=== PATIENT | female | born 1980 | race Caucasian/White ===

== ENCOUNTER → 2019-03-05 | Outpatient (CLI) | payer BC ==
--- NOTE | 2019-03-06 09:35 | MM ---
Reason for exam: screening (asymptomatic). Baseline mammogram. History: Patient is nulliparous. Family history of breast cancer in mother at age 62. Physical Findings: Nurse did not find any significant physical abnormalities on exam. MG 3D Screening Mammo W/Cad Bilateral CC and MLO view(s) were taken. There are scattered fibroglandular densities. There is no discrete abnormality. These results were verbally communicated with the patient and result sheet given to the patient on 03/05/19. ASSESSMENT: Negative, BI-RAD 1 RECOMMENDATION: Routine screening mammogram of both breasts in 1 year.
== END | disposition home or self-care (01) ==
LOC: RADMAMWWP 15:19
PROVIDERS: ATTEND Family Medicine
DX: Z12.31 Encounter for screening mammogram for malignant neoplasm of breast (principal)
CPT/HCPCS: 77063; 77067

== ENCOUNTER → 2020-04-14 | Outpatient (CLI) | payer BC ==
--- NOTE | 2020-04-16 08:20 | MM ---
Reason for exam: screening (asymptomatic). Last mammogram was performed 1 year and 1 month ago. History: Patient is nulliparous. Family history of breast cancer in mother at age 62. Physical Findings: A clinical breast exam by your physician is recommended on an annual basis and results should be correlated with mammographic findings. MG 3D Screening Mammo W/Cad Bilateral CC and MLO view(s) were taken. Prior study comparison: March 05, 2019, bilateral MG 3d screening mammo w/cad. There are scattered fibroglandular densities. No significant changes when compared with prior studies. ASSESSMENT: Benign, BI-RAD 2 RECOMMENDATION: Routine screening mammogram of both breasts in 1 year.
== END ==
LOC: RADMAMWWP 16:02
PROVIDERS: ATTEND Family Medicine
DX: Z12.31 Encounter for screening mammogram for malignant neoplasm of breast (principal); Z80.3 Family history of malignant neoplasm of breast
CPT/HCPCS: 77063; 77067

== ENCOUNTER → 2021-07-28 | Outpatient (CLI) | payer BC | END | disposition home or self-care (01) | LOC: RADMAMWWP 15:39 | PROVIDERS: ATTEND Family Medicine | DX: Z12.31 Encounter for screening mammogram for malignant neoplasm of breast (principal) | CPT/HCPCS: 77063; 77067 ==

== ENCOUNTER → 2022-07-29 | Outpatient (CLI) | payer BC ==
--- NOTE | 2022-08-01 18:44 | MM ---
Reason for Exam: Screening (asymptomatic). Last screening mammogram was performed 12 month(s) ago. Patient History: Menarche at age 11. Patient has no children. Mother had breast cancer, age 62. Risk Values: Yvonne 5 year model risk: 1.4%. NCI Lifetime model risk: 18.3%. Prior Study Comparison: 03/05/2019 Bilateral Screening Mammogram, [facility]. 04/14/2020 Bilateral Screening Mammogram, [facility]. 07/28/2021 Bilateral MG 3D screening mammo w/cad, [facility]. Tissue Density: There are scattered fibroglandular densities. Findings: Analyzed By CAD. There is no suspicious group of microcalcifications or new suspicious mass in either breast. Overall Assessment: Negative, BI-RAD 1 Management: Screening Mammogram of both breasts in 1 year. . Patient should continue monthly self-breast exams. A clinical breast exam by your physician is recommended on an annual basis. This exam should not preclude additional follow-up of suspicious palpable abnormalities. Note on Yvonne scores and lifetime risk: 1. A Yvonne score greater than 3% is considered moderate risk. If this is the case, consider specialist referral to assess eligibility for a risk reducing agent. 2. If overall lifetime risk for the development of breast cancer is 20% or higher, the patient may qualify for future screening with alternating mammogram and breast MRI. Electronically signed and approved by: Alysha Jaquez M.D. Radiologist
== END | disposition home or self-care (01) ==
LOC: RADMAMWWP 13:25
PROVIDERS: ATTEND Family Medicine
DX: Z12.31 Encounter for screening mammogram for malignant neoplasm of breast (principal); Z80.3 Family history of malignant neoplasm of breast
CPT/HCPCS: 77063; 77067

== ENCOUNTER → 2023-08-05 | Outpatient (CLI) | payer BC ==
--- NOTE | 2023-08-05 16:15 | MM ---
Reason for Exam: Screening (asymptomatic). Last screening mammogram was performed 12 month(s) ago. Patient History: Menarche at age 11. Patient has no children. Perimenopausal. Mother had breast cancer, age 62. Risk Values: Yvonne 5 year model risk: 1.5%. NCI Lifetime model risk: 18.2%. Prior Study Comparison: 04/14/2020 Bilateral Screening Mammogram, [facility]. 07/28/2021 Bilateral MG 3D screening mammo w/cad, [facility]. 07/29/2022 Bilateral MG 3D screening mammo w/cad, [facility]. Tissue Density: There are scattered areas of fibroglandular density. Findings: Analyzed By CAD. The pattern is symmetrical. There is increase in size of the asymmetric density inferior medial right breast. This measures 6 mm and is located 2 cm from the nipple. Additional workup is recommended. No suspicious groups of microcalcifications, spiculated or lobular masses, architectural distortion or other secondary signs of malignancy are mammographically apparent. Overall Assessment: Incomplete: need additional imaging evaluation, BI-RAD 0 Management: Diagnostic Breast Ultrasound of the left breast. A negative mammogram report should not preclude additional follow up of suspicious palpable abnormalities. Patient should continue monthly self breast exam. A clinical breast exam by your physician is recommended on an annual basis and results should be correlated with mammographic findings. Note on Yvonne scores and lifetime risk: 1. A Yvonne score greater than 3% is considered moderate risk. If this is the case, consider specialist referral to assess eligibility for a risk reducing agent. 2. If overall lifetime risk for the development of breast cancer is 20% or higher, the patient may qualify for future screening with alternating mammogram and breast MRI. Electronically signed and approved by: Harley Mackenzie D.O. Radiologis
== END | disposition home or self-care (01) ==
LOC: RADMAMWWP 10:39
PROVIDERS: ATTEND Family Medicine
DX: Z12.31 Encounter for screening mammogram for malignant neoplasm of breast (principal); Z80.3 Family history of malignant neoplasm of breast
CPT/HCPCS: 77063; 77067

== ENCOUNTER → 2023-08-12 | Outpatient (CLI) | payer BC ==
--- NOTE | 2023-08-12 15:14 | USB ---
Reason for Exam: Additional evaluation requested from abnormal screening. Patient History: Menarche at age 11. Patient has no children. Perimenopausal. Mother had breast cancer, age 62. Risk Values: Yvonne 5 year model risk: 1.5%. NCI Lifetime model risk: 18.2%. Technique: Method: Targeted. Prior Study Comparison: 07/28/2021 Bilateral MG 3D screening mammo w/cad, [facility]. 07/29/2022 Bilateral MG 3D screening mammo w/cad, [facility]. 08/05/2023 Bilateral MG 3D screening mammo w/cad, [facility]. Findings: The lower inner quadrant of the right breast, the axilla of the right breast and the retroareolar of the right breast were scanned. Targeted ultrasound lower inner quadrant right breast 3:00 to 6:00 including scanning of the subareolar region and axilla. At the 4:00 position, 2 cm from the nipple, mammographic correlate, there is a lobulated hypoechoic mass measuring 7 x 6 x 5 mm. There is some posterior through transmission present. Biopsy recommended. Overall Assessment: Suspicious, BI-RAD 4 Management: Ultrasound Core Biopsy of the right breast. Results were given to the patient verbally at the time of exam. Electronically signed and approved by: Alysha Jaquez M.D. Radiologist
== END | disposition home or self-care (01) ==
LOC: RADUSWWP 14:36
PROVIDERS: ATTEND Family Medicine
DX: N63.24 Unspecified lump in the left breast, lower inner quadrant (principal); R92.8 Other abnormal and inconclusive findings on diagnostic imaging of breast; Z80.3 Family history of malignant neoplasm of breast

== ENCOUNTER → 2023-08-26 | Day surgery (SDC) | payer BC ==
--- NOTE | 2023-09-02 14:43 | MM ---
Reason for Exam: Post Procedure Mammogram. Last screening mammogram was performed less than 1 month ago. Patient History: Menarche at age 11. Patient has no children. Perimenopausal. Mother had breast cancer, age 62. Risk Values: Yvonne 5 year model risk: 1.5%. NCI Lifetime model risk: 18.2%. Prior Study Comparison: 07/28/2021 Bilateral MG 3D screening mammo w/cad, [facility]. 07/29/2022 Bilateral MG 3D screening mammo w/cad, [facility]. 08/05/2023 Bilateral MG 3D screening mammo w/cad, [facility]. Tissue Density: Right: There are scattered areas of fibroglandular density. Pathology Description: Location: 4 o'clock. Cores: 10 Mammotome Gauge 13 - 7 cores. Celero used thereafter for sufficient samples Gauge 12 - 3 cores. The procedure of ultrasound guided core biopsy was explained to the patient. Benefits, alternatives, and risks were discussed. An informed consent was then obtained. A timeout was performed. The patient was placed in supine positioning for imaging and for the procedure. The overlying skin was prepped and draped in usual sterile fashion. Lidocaine was used as anesthetic into the skin and subcutaneous tissue up to area of concern in the right breast. A small skin monik was made with surgical scalpel. Under ultrasound guidance, a 12-gauge vacuum assisted biopsy gun device was used to obtain 4 core samples. Samples felt to be inadequate with very little tissue identified. The device was exchanged for a MethylGenes vacuum-assisted device. 3 additional samples were obtained which had good tissue sampling through the lesion. A biopsy clip was left in lesion. Hydromark Coil core marker was placed. The patient tolerated the procedure well without any immediate complication. The patient was kept in the radiology department for short stay after the procedure and then discharged home in stable condition. Postprocedure mammogram: The patient was transferred to mammography for physician ordered post procedure mammogram for clip placement verification. Clip is in the expected region of the biopsy. Impression: Successful ultrasound guided core biopsy of area of concern in the right breast, full pathology results to follow. Recommendations: 1. Recommendations are pending pathology results. Pathology Results: Result: High risk, Intraductual papilloma high risk. Pathology and radiology were reviewed. Findings are concordant. RIGHT BREAST, 4:00, ULTRASOUND GUIDED NEEDLE CORE BIOPSY: Intraductal papilloma. Overall Assessment: High risk Assessment: MG diagnostic mammo RT wo CAD - Right: Suspicious, BI-RAD 4. Management: Open Biopsy of the right breast. Electronically signed and approved by: Harley Mackenzie D.O. Radiologis
== END ==
LOC: RADUSWWP 10:04
PROVIDERS: ATTEND Surgery
DX: D24.1 Benign neoplasm of right breast (principal); R92.8 Other abnormal and inconclusive findings on diagnostic imaging of breast; Z80.3 Family history of malignant neoplasm of breast
CPT/HCPCS: 88305; 77065; 19083; A4648

== ENCOUNTER → 2023-09-02 | Outpatient (CLI) | payer BC ==
[2023-09-02 15:24] VITALS: BP 153/91; PULSE 60; RESP 17; TEMP 98
--- NOTE | 2023-09-02 15:36 | P.GSCN ---
History of Present Illness Consult date: 09/02/23 Reason for Consult: abnormal right breast mammogram/intraductal papiloma Requesting physician: Sindi Danielle History of present illness: Lora is a 43 year old female seen in consultation for Dr. Shashi ashley an ultrasound guided core biopsy on 08-26-23 which was an intraductal papilloma. She had a bilateral mammogram on 08-05-23 which showed a lesion in the right breast for which ultrasound was recommended. This was done on 08-12-23. This showed a 6 by 7 mm lobulated mass. A biopsy on 08-26-23 was consistent with an intraductal papilloma. This was personally reviewed with Dr. Quintero who felt the lesion should be resected secondary to irregular margins. she does not feel any lumps masses or nodules of concern. This was a routine screening mammogram. She's never had any surgery on her breast. She is not complaining of any recent trauma or infection of the breast. She is not complaining of any nipple discharge or skin changes. Caffeine: occasional nicotine: none chocolate: occasional BCP: none Family History: brother: T cell leukemia mother: breast cancer Hormonal History: menarche: 13 G0 periods irregular, LMP now, Surgical History: spinal L4L5, 2016 Medical History: none Social HIstory: nicotine: none alcohol: occasional drugs; none Review of Systems - Constitutional Denies fever, Denies weight loss - EENT Eyes: denies blurred vision Ears: deny: decreased hearing, tinnitus Ears, nose, mouth and throat: Denies dysphagia - Breasts bilateral: as per HPI - Cardiovascular Denies chest pain, Denies shortness of breath - Respiratory Denies cough, Denies 7 - Gastrointestinal Reports as per HPI - Genitourinary Genitourinary: Denies dysuria, Denies hematuria Menstruation: Reports cycle variable - Musculoskeletal Reports as per HPI - Integumentary Integumentary Comment(s): normal turgor - Neurological Denies headaches, Denies syncope - Psychiatric Reports anxiety - Endocrine Reports as per HPI - Allergic/Immunologic Reports as per HPI Past Medical History Past Medical History: Musculoskeletal Disorder Additional Past Medical History / Comment(s): BACK PAIN, HERNIATED DISC, SCIATIC NERVE PAIN . History of Any Multi-Drug Resistant Organisms: None Reported Past Surgical History: No Surgical Hx Reported Additional Past Surgical History / Comment(s): 03-12-15 LUMBAR LAMINECTOMY/DISCECTOMY Past Anesthesia/Blood Transfusion Reactions: No Reported Reaction Past Psychological History: Anxiety Smoking Status: Never smoker Past Alcohol Use History: Occasional Past Drug Use History: None Reported - Past Family History Mother Family Medical History: Cancer Additional Family Medical History / Comment(s): BREAST CANCER Brother(s) Family Medical History: Cancer Additional Family Medical History / Comment(s): ACUTE T CELL LEUKEMIA Father Family Medical History: Osteoarthritis (OA) Additional Family Medical History / Comment(s): KIDNEY TRANSPLANT, 7 HIP REPLACMENTS Medications and Allergies Home Medications Medication Instructions Recorded Confirmed Type Desvenlafaxine Succinate [Pristiq 50 mg PO HS 03/11/15 09/02/23 History ER] carvediloL phosphate [Coreg Cr] 40 mg PO DAILY 08/15/23 09/02/23 History Allergies Allergy/AdvReac Type Severity Reaction Status Date / Time ampicillin Allergy Rash/Hives Verified 09/02/23 15:18 Surgical - Exam - General no distress - Eyes normal ocular movement - ENT no hearing loss - Neck trachea midline - Respiratory normal respiratory effort - Cardiovascular Heart Sounds: normal: S1, S2 - Abdomen Abdomen: soft, non tender, no guarding, no rigid, no rebound - Integumentary normal turgor examination of the posterior chest wall reveals a dark nevus on the right posterior region which is approximately 8 mm in size it is dark with irregular border - Neurologic no disoriented, no combative - Musculoskeletal normal gait - Psychiatric oriented to time, oriented to person, oriented to place, speech is normal, memory intact Breast Exam: BRA: 42B Inspection:Bilateral grade 3 ptosis; right breast slightly larger than left breast Palpation: right breast: Multiple positional exam ecchymosis at biopsy site, no dominant masses or nodules of concern Right axilla: No adenopathy of concern Left breast: Multi-positional exam no dominant masses or nodules of concern Left axilla: No adenopathy of concern Results mammogram and ultrasound reviewed with Dr. Jaquez from radiology Pathology reviewed from the right breast biopsy Assessment and Plan Assessment: impression: Right breast ultrasound core biopsy intraductal papilloma, concern is that this may be discordant as of the microlobulated irregular bordered lesion Recommendation after discussion with radiology is for needle localization and excision Dark nevus right back Plan: Needle localization lumpectomy lesion of concern in the right breast, possible ankle plastic tissue transferred Excision of dark nevus right back Risks and benefits of the procedure discussed with the patient and her mother. Risks include but are not limited to bleeding, infection, reaction to the anesthetic. They understand and wish to proceed. This will be scheduled in the near future CC: Dr. Danielle
== END ==
LOC: WWCWWP 14:27
PROVIDERS: ATTEND Surgery
DX: R92.8 Other abnormal and inconclusive findings on diagnostic imaging of breast (principal); D22.5 Melanocytic nevi of trunk; D24.1 Benign neoplasm of right breast; Z80.3 Family history of malignant neoplasm of breast; Z88.1 Allergy status to other antibiotic agents

== ENCOUNTER → 2023-10-27 | Outpatient (CLI) | payer BC ==
--- NOTE | 2023-10-27 15:04 | P.PN ---
Subjective Progress Note Date: 10/27/23 Principal diagnosis: right breast intraductal papilloma, dark nevis right back 10-27-23 Reason for Consult: abnormal right breast mammogram/intraductal papiloma Requesting physician: Sindi Danielle History of present illness: Lora is a 43 year old female seen in consultation for Dr. Danielle regarding an ultrasound guided core biopsy on 08-26-23 which was an intraductal papilloma. She had a bilateral mammogram on 08-05-23 which showed a lesion in the right breast for which ultrasound was recommended. This was done on 08-12-23. This showed a 6 by 7 mm lobulated mass. A biopsy on 08-26-23 was consistent with an intraductal papilloma. This was personally reviewed with Dr. Quintero who felt the lesion should be resected secondary to irregular margins. she does not feel any lumps masses or nodules of concern. This was a routine screening mammogram. She's never had any surgery on her breast. She is not complaining of any recent trauma or infection of the breast. She is not complaining of any nipple discharge or skin changes. Caffeine: occasional nicotine: none chocolate: occasional BCP: none Family History: brother: T cell leukemia mother: breast cancer Hormonal History: menarche: 13 G0 periods irregular, LMP now, Surgical History: spinal L4L5, 2016 Medical History: none Social History: nicotine: none alcohol: occasional drugs; none Review of Systems - Constitutional Denies fever, Denies weight loss - EENT Eyes: denies blurred vision Ears: deny: decreased hearing, tinnitus Ears, nose, mouth and throat: Denies dysphagia - Breasts bilateral: as per HPI - Cardiovascular Denies chest pain, Denies shortness of breath - Respiratory Denies cough - Gastrointestinal Reports as per HPI - Genitourinary Genitourinary: Denies dysuria, Denies hematuria Menstruation: Reports cycle variable - Musculoskeletal Reports as per HPI - Integumentary Integumentary Comment(s): normal turgor - Neurological Denies headaches, Denies syncope - Psychiatric Reports anxiety - Endocrine Reports as per HPI - Allergic/Immunologic Reports as per HPI Past Medical History Past Medical History: Musculoskeletal Disorder Additional Past Medical History / Comment(s): BACK PAIN, HERNIATED DISC, SCIATIC NERVE PAIN . History of Any Multi-Drug Resistant Organisms: None Reported Past Surgical History: No Surgical Hx Reported Additional Past Surgical History / Comment(s): 03-12-15 LUMBAR LAMINECTOMY/DISCECTOMY Past Anesthesia/Blood Transfusion Reactions: No Reported Reaction Past Psychological History: Anxiety Smoking Status: Never smoker Past Alcohol Use History: Occasional Past Drug Use History: None Reported - Past Family History Mother Family Medical History: Cancer Additional Family Medical History / Comment(s): BREAST CANCER Brother(s) Family Medical History: Cancer Additional Family Medical History / Comment(s): ACUTE T CELL LEUKEMIA Father Family Medical History: Osteoarthritis (OA) Additional Family Medical History / Comment(s): KIDNEY TRANSPLANT, 7 HIP REPLACMENTS Medications and Allergies Home Medications Medication Instructions Recorded Confirmed Type Desvenlafaxine Succinate [Pristiq 50 mg PO HS 03/11/15 09/02/23 History ER] carvediloL phosphate [Coreg Cr] 40 mg PO DAILY 08/15/23 09/02/23 History Allergies Allergy/AdvReac Type Severity Reaction Status Date / Time ampicillin Allergy Rash/Hives Verified 09/02/23 15:18 Objective - Constitutional General appearance: Present: cooperative - EENT Eyes: Present: EOMI ENT: Present: hearing grossly normal - Neck Neck: Present: normal ROM - Respiratory Respiratory: bilateral: CTA - Cardiovascular Rhythm: regular Heart sounds: normal: S1, S2 - Integumentary Integumentary: Present: normal turgor - Musculoskeletal Musculoskeletal: Present: gait normal - Psychiatric Psychiatric: Present: A&O x's 3, appropriate affect, intact judgment & insight - Additional findings Additional findings: Breast Exam: BRA: 42B Inspection:Bilateral grade 3 ptosis; right breast slightly larger than left breast Palpation: right breast: Multiple positional exam ecchymosis at biopsy site resolved, no dominant masses or nodules of concern Right axilla: No adenopathy of concern Left breast: Multi-positional exam no dominant masses or nodules of concern Left axilla: No adenopathy of concern Assessment and Plan Assessment: impression: Right breast ultrasound core biopsy intraductal papilloma, concern is that this may be discordant as of the microlobulated irregular bordered lesion Recommendation after discussion with radiology is for needle localization and excision Dark nevus right back Plan: Needle localization lumpectomy lesion of concern in the right breast, possible onco plastic tissue transferred Excision of dark nevus right back Risks and benefits of the procedure discussed with the patient and her mother. Risks include but are not limited to bleeding, infection, reaction to the anesthetic. They understand and wish to proceed. This will be scheduled in the near future CC: Dr. Danielle
[2023-10-27 15:13] VITALS: PULSE 68; RESP 17; TEMP 98.8
== END ==
LOC: WWCWWP 14:51
PROVIDERS: ATTEND Surgery
DX: R92.8 Other abnormal and inconclusive findings on diagnostic imaging of breast (principal); D24.1 Benign neoplasm of right breast; D22.5 Melanocytic nevi of trunk; Z80.3 Family history of malignant neoplasm of breast; Z88.1 Allergy status to other antibiotic agents

== ENCOUNTER → 2023-11-08 | Day surgery (SDC) | payer BC ==
[~2023-11-08] MED LIST: HYDROmorphone 0.5 MG/0.5 ML SYRINGE IVP PRN; LIDOCAINE 1% INJ 10MG/ML (20 ML MDV) ONE; MIDAZOLAM 2 MG/2 ML VIAL ONE; PROPOFOL 10 MG/ML 20 ML VIAL IV ONE; SUCCINYLCHOLINE CHLORIDE 200 MG/10 ML VIAL IV ONE; fentaNYL (PF) 50 MCG/ML 2 ML AMP ONE
[2023-11-08] MEDS: ACETAMINOPHEN TAB 500 MG TAB PO PRN (10:43)
[2023-11-08] MEDS: ALPRAZolam 0.5 MG TAB PO STA (10:47)
[2023-11-08] MEDS: LACTATED RINGERS 1,000 ML IV SCH (10:56)
[2023-11-08] MEDS: LIDOCAINE 1% INJ 10MG/ML (20 ML MDV) SQ ONE ×3 (11:50→16:14)
[2023-11-08] MEDS: MIDAZOLAM 2 MG/2 ML VIAL IV ONE (12:21)
[2023-11-08] MEDS: DEXAMETHASONE SOD PHOSPHATE 4 MG/ML 1 ML VIAL IV ONE (12:24)
[2023-11-08] MEDS: HEPARIN SODIUM,PORCINE 5,000 UNIT/ML 1 ML VIAL SQ PRN (12:25)
[2023-11-08] MEDS: ONDANSETRON 4 MG/2 ML VIAL IVP ONE (12:26)
[2023-11-08] MEDS: ceFAZolin 3 GM in SODIUM CHLORIDE 0.9% 100 ML IVPB PRN (15:14)
--- NOTE | 2023-11-08 16:06 | P.BCAON ---
Date of Procedure: 11/08/23 Preoperative Diagnosis: Dark nevus right posterior back, intraductal papilloma right breast for excision Postoperative Diagnosis: Same Procedure(s) Performed: Excision of dark nevus right back 12 mm x 6 mm, needle localization lumpectomy of intraductal papilloma right breast Anesthesia: BECCA Surgeon: Juhi Lunsford Estimated Blood Loss (ml): 5 IV fluids (ml): 600 Pathology: other (Dark nevus right back, needle localization of intraductal papilloma right breast) Condition: stable Disposition: same day Indications for Procedure: Dark nevus right back, intraductal papilloma felt to be abnormal on radiograph and recommended for excision Operative Findings: Dark nevus right back, fibrofatty tissue in the breast Description of Procedure: The patient was first seen in the radiology suite for needle localization of the intraductal papilloma was performed. Following this she was brought to the operative suite. Following induction of anesthesia she was placed on her left lateral side. A nevus 12 mm x 6 mm was prepped and draped in a sterile fashion. Wide excision was performed. The defect was closed with nylon suture after was assured that hemostasis was attained. The size of the lesion was 12 mm x 6 mm. A sterile dressing was applied. Following this she was positioned supine on the operating table. The right breast was prepped and draped in sterile fashion. A periareolar incision was made and carried down to the shaft of the needle. Surrounding tissue was excised. The marking spiral clip was identified at the time of dissection. The specimen was removed. The specimen was painted for orientation. After we are sure that hemostasis was attained the deep tissues were closed using 3-0 Vicryl suture. The skin was closed using 4-0 Monocryl. The patient tolerated the procedure in stable condition. Radiograph of the specimen did reveal the clip of concern. All instrument and sponge counts were correct at the end of the case.
[2023-11-08] MEDS: LACTATED RINGERS 1,000 ML IV ONE (16:14)
[2023-11-08 16:59] VITALS: TEMP 97.5
[2023-11-08 18:24] VITALS: RESP 16
[2023-11-08 18:28] VITALS: BP 132/76; PULSE 71
--- NOTE | 2023-11-18 12:42 | MM ---
Risk Values: Yvonne 5 year model risk: 2.4%. NCI Lifetime model risk: 21.7%. Pathology Description: Needle Type: 5 cm Kopan The needle localization procedure with wire placement for surgical excision was explained to the patient. Benefits, alternatives, and risks were discussed. An informed consent was then obtained. A timeout was performed. The overlying skin was prepped in usual sterile fashion. Lidocaine was used as anesthetic into the skin and subcutaneous tissue up to the level of area of concern. A 5 cm needle was used. It was placed using a medial approach under mammographic guidance. Subsequent 90 degrees mammogram show the needle to be in satisfactory position relative to the targeted area. The wire was placed and the needle was withdrawn. The wire was fixed to patient's skin. Images were reviewed with the surgeon prior to surgery. The patient tolerated the procedure well without any immediate complication. The patient was kept in the radiology department for short stay after the procedure and then taken to surgery for surgical excision. Specimen: Biopsy marker and wire are identified in specimen mammogram. Impression: 1. Successful needle localization with wire placement and surgical excision of biopsy marker. [facility], , 11/11/2023 4:38 PM. Pathology Results: Result: Benign, Intraductal Papilloma. Pathology and radiology were reviewed. Findings are concordant. A. RIGHT BREAST, LUMPECTOMY: Intraductal papilloma and biopsy site change. Margins negative and benign. B. SKIN, RIGHT POSTERIOR BASE, EXCISIONAL BIOPSY: Compound melanocytic nevus with congenital features. Margins negative. Overall Assessment: Benign Management: Diagnostic Mammogram of the right breast in 6 months. Electronically signed and approved by: Harley Mackenzie D.O. Radiologis
== END | disposition home or self-care (01) ==
LOC: OR 10:04
PROVIDERS: ATTEND Surgery
DX: D24.1 Benign neoplasm of right breast
CPT/HCPCS: 76098; 81025; 88305; 88307

== ENCOUNTER → 2023-11-17 | Outpatient (CLI) | payer BC ==
--- NOTE | 2023-11-17 08:14 | P.BCPO ---
Progress Note - Text Progress Note Date: 11/17/23 Lora is a 43-year-old female status post right breast lumpectomy and excision of a right skin posterior back lesion on 11-09-2023. Pathology revealed an intraductal papilloma biopsy site change of the breast lesion. Of the skin lesion it was a compound melanocytic nevus with congenital features. The margins were negative. Postoperatively she has done well with no complications. Examination: Lungs: Clear Heart: Regular rate and rhythm Incision breast and back clean and dry Impression: Intraductal papilloma right breast Right posterior back compound melanocytic nevus Plan: Right breast mammogram with examination in 6 months Close attention to any change in skin lesions if any concerns she should follow- up with a basketball commentator Follow-up sooner any questions or concerns
[2023-11-17 08:18] VITALS: PULSE 72; RESP 18; TEMP 98.2
== END ==
LOC: WWCWWP 07:46
PROVIDERS: ATTEND Surgery
DX: R92.8 Other abnormal and inconclusive findings on diagnostic imaging of breast (principal); D24.1 Benign neoplasm of right breast; D22.5 Melanocytic nevi of trunk; Z48.817 Encounter for surgical aftercare following surgery on the skin and subcutaneous tissue; Z88.1 Allergy status to other antibiotic agents

== ENCOUNTER → 2024-05-10 | Outpatient (CLI) | payer BC ==
--- NOTE | 2024-05-10 07:58 | MM ---
Reason for Exam: Follow-up at short interval from prior study. Last screening mammogram was performed 9 month(s) ago. Patient History: Menarche at age 11. Patient has no children. Perimenopausal. Previous Hyperplasia w/o Atypia at age 43. 11/08/2023, Benign MG pre op needle loc RT on the right side. 08/26/2023, High risk US biopsy breast VAD RT on the right side. Mother had breast cancer, age 62. Risk Values: Yvonne 5 year model risk: 4.3%. NCI Lifetime model risk: 27.1%. Prior Study Comparison: 07/29/2022 Bilateral MG 3D screening mammo w/cad, [facility]. 08/05/2023 Bilateral MG 3D screening mammo w/cad, [facility]. 08/26/2023 Right MG diagnostic mammo RT wo CAD, [facility]. Tissue Density: Right: There are scattered areas of fibroglandular density. Findings: Analyzed By CAD. Postbiopsy changes are noted. There is no evidence of suspicious mass or microcalcifications. Overall Assessment: Probably benign, BI-RAD 3 Management: Screening Mammogram of both breasts in 6 months. . Results were given to the patient verbally at the time of exam. Patient should continue monthly self-breast exams. A clinical breast exam by your physician is recommended on an annual basis. This exam should not preclude additional follow-up of suspicious palpable abnormalities. Note on Yvonne scores and lifetime risk: 1. A Yvonne score greater than 3% is considered moderate risk. If this is the case, consider specialist referral to assess eligibility for a risk reducing agent. 2. If overall lifetime risk for the development of breast cancer is 20% or higher, the patient may qualify for future screening with alternating mammogram and breast MRI. [facility], , 05/10/2024 7:54 AM. Electronically signed and approved by: Nakul Robles M.D. Radiologis
== END | disposition home or self-care (01) ==
LOC: RADMAMWWP 07:13
PROVIDERS: ATTEND Surgery
DX: R92.8 Other abnormal and inconclusive findings on diagnostic imaging of breast (principal); R92.321 Mammographic fibroglandular density, right breast; Z80.3 Family history of malignant neoplasm of breast
CPT/HCPCS: 77061; 77065

== ENCOUNTER → 2024-05-24 | Outpatient (CLI) | payer BC ==
[2024-05-24 08:07] VITALS: BP 182/100; PULSE 74; RESP 16; TEMP 98.4
--- NOTE | 2024-05-24 08:33 | P.PN ---
Subjective Progress Note Date: 05/24/24 Principal diagnosis: right breast intraductal papilloma Subjective Progress Note Date: 05-23-24 Principal diagnosis: right breast intraductal papilloma, dark nevis right back 10-27-23 Reason for Consult: Intraductal papilloma right breast resected 2023 Requesting physician: Sindi Danielle History of present illness: Lora is a 44 year old female seen in consultation for Dr. Danielle regarding an ultrasound guided core biopsy on 08-26-23 which was an intraductal papilloma. She had a bilateral mammogram on 08-05-23 which showed a lesion in the right breast for which ultrasound was recommended. This was done on 08-12-23. This showed a 6 by 7 mm lobulated mass. A biopsy on 08-26-23 was consistent with an intraductal papilloma. This was personally reviewed with Dr. Quintero who felt the lesion should be resected secondary to irregular margins. she does not feel any lumps masses or nodules of concern. This was a routine sc reening mammogram. She's never had any surgery on her breast. She is not complaining of any recent trauma or infection of the breast. She is not complaining of any nipple discharge or skin changes. Resection of a skin lesion as well as a needle localization right breast lumpectomy on 11-09-2023. The lumpectomy revealed an intraductal papilloma and biopsy site change. Margins were negative and benign. The right skin lesion revealed a compound melanocytic nevus margins negative. She underwent a repeat right breast mammogram on 05-10-2024. Patient's lifetime risk for breast cancer is 27.1%, Yvonne 5-year model risk 4.3%. The radiograph was a BI-RADS 3 with postbiopsy changes and bilateral mammogram of both breasts in 6 months was recommended. She is not complaining of any lumps masses or nodules of concern in either breast. I had a discussion with her regarding her NCI lifetime risk of breast cancer and recommended an MRI however she is claustrophobic and would like to wait to cons ider that. Patiently we have also discussed her 5-year Yvonne risk of breast cancer being 4.3% and we have discussed chemoprophylaxis and she has declined this at the present time. We are going to do close surveillance. She will be due for a bilateral mammogram in 6 months with examination at that time. Caffeine: occasional nicotine: none chocolate: occasional BCP: none Family History: brother: T cell leukemia mother: breast cancer Hormonal History: menarche: 13 G0 periods irregular, LMP now, Surgical History: spinal L4L5, 2016 Medical History: none Social History: nicotine: none alcohol: occasional drugs; none Review of Systems - Constitutional Denies fever, Denies weight loss - EENT Eyes: denies blurred vision Ears: deny: decreased hearing, tinnitus Ears, nose, mouth and throat: Denies dysphagia - Breasts bilateral: as per HPI - Cardiovascular Denies chest pain, Denies shortness of breath - Respiratory Denies cough - Gastrointestinal Reports as per HPI - Genitourinary Genitourinary: Denies dysuria, Denies hematuria Menstruation: Reports cycle variable - Musculoskeletal Reports as per HPI - Integumentary Integumentary Comment(s): normal turgor - Neurological Denies headaches, Denies syncope - Psychiatric Reports anxiety - Endocrine Reports as per HPI - Allergic/Immunologic Reports as per HPI Past Medical History Past Medical History: Musculoskeletal Disorder Additional Past Medical History / Comment(s): BACK PAIN, HERNIATED DISC, SCIATIC NERVE PAIN . History of Any Multi-Drug Resistant Organisms: None Reported Past Surgical History: No Surgical Hx Reported Additional Past Surgical History / Comment(s): 03-12-15 LUMBAR LAMINECTOMY/DISCECTOMY Past Anesthesia/Blood Transfusion Reactions: No Reported Reaction Past Psychological History: Anxiety Smoking Status: Never smoker Past Alcohol Use History: Occasional Past Drug Use History: None Reported - Past Family History Mother Family Medical History: Cancer Additional Family Medical History / Comment(s): BREAST CANCER Brother(s) Family Medical History: Cancer Additional Family Medical History / Comment(s): ACUTE T CELL LEUKEMIA Father Family Medical History: Osteoarthritis (OA) Additional Family Medical History / Comment(s): KIDNEY TRANSPLANT, 7 HIP REPLACMENTS Medications and Allergies Home Medications Medication Instructions Recorded Confirmed Type Desvenlafaxine Succinate [Pristiq 50 mg PO HS 03/11/15 09/02/23 History ER] carvediloL phosphate [Coreg Cr] 40 mg PO DAILY 08/15/23 09/02/23 History Allergies Allergy/AdvReac Type Severity Reaction Status Date / Time ampicillin Allergy Rash/Hives Verified 09/02/23 15:18 Objective - Vital Signs Vital signs: Vital Signs Temp 98.4 F 05/24/24 08:05 Pulse 74 05/24/24 08:05 Resp 16 05/24/24 08:05 BP 182/100 05/24/24 08:05 Pulse Ox 96 05/24/24 08:05 FiO2 Intake & Output 05/23/24 05/24/24 05/24/24 18:59 06:59 18:59 Weight 154.221 kg - Constitutional General appearance: Present: cooperative - EENT Eyes: Present: EOMI ENT: Present: hearing grossly normal - Neck Neck: Present: normal ROM - Respiratory Respiratory: bilateral: CTA - Cardiovascular Rhythm: regular Heart sounds: normal: S1, S2 - Integumentary Integumentary: Present: normal turgor - Musculoskeletal Musculoskeletal: Present: gait normal - Psychiatric Psychiatric: Present: A&O x's 3, appropriate affect, intact judgment & insight - Additional findings Additional findings: Breast Exam: BRA: 42B Inspection:Bilateral grade 3 ptosis; right breast slightly larger than left breast Palpation: right breast: Multiple positional exam no dominant masses or nodules of concern, postbiopsy changes Right axilla: No adenopathy of concern; 5 mm in size Left breast: Multi-positional exam no dominant masses or nodules of concern Left axilla: No adenopathy of concern Assessment and Plan Assessment: Impression: 1. Right breast intraductal papilloma 2. High lifetime risk of breast cancer, high Yvonne 5-year model risk 4.3% for breast cancer 3. Melanocytic nevus completely resected back 4. 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 Danielle
== END ==
LOC: WWCWWP 07:42
PROVIDERS: ATTEND Surgery
DX: D24.1 Benign neoplasm of right breast (principal); D22.5 Melanocytic nevi of trunk; Z88.1 Allergy status to other antibiotic agents

== ENCOUNTER → 2024-07-26 | Outpatient (CLI) | payer BC ==
[2024-07-26 08:21] VITALS: BP 175/128; PULSE 65; RESP 17; TEMP 97.8
--- NOTE | 2024-07-26 08:39 | P.PCN ---
Date of Procedure: 07/26/24 Preoperative Diagnosis: dark nevis right axilla Postoperative Diagnosis: same Procedure(s) Performed: excision dark nevis right axilla Anesthesia: local Surgeon: Juhi Lunsford Pathology: other (skin lesion) Condition: stable Disposition: same day Indications for Procedure: dark nevis right axilla Operative Findings: as above Description of Procedure: The area of concern in the right axilla was prepped with chlorhexidine. 1% lidocaine was used to anesthetize the area of concern wide excision was performed. The lesion was approximately 6 mm. The skin was closed using a nylon suture. The patient tolerated the procedure in stable condition. All instrument and sponge counts were correct at the end of the case.
== END ==
LOC: WWCWWP 08:06
PROVIDERS: ATTEND Surgery
DX: D22.5 Melanocytic nevi of trunk (principal); Z85.3 Personal history of malignant neoplasm of breast; Z88.0 Allergy status to penicillin
CPT/HCPCS: 88305